=== PATIENT | male | born 1965 | race Caucasian/White ===

== ENCOUNTER 2019-12-24 10:06 | Emergency (ER) | payer OTHER ==
[2019-12-24 10:26] VITALS: BP 129/78
--- NOTE | 2019-12-24 10:52 | ED Physician Documentation ---
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 No LOC. Has lac on top of head. No other injury.) Where head injury occurred: Home Timing - onset: Today Location of injury: Top Quality of pain: Aching Associated symptoms: No: LOC, AMS, Nausea / vomiting, Neck pain Contributing factors: No: Anticoagulated Similar symptoms before: Has not had sx before (has lac on top of head and cannot tell how bad it is himself so here for eval.) Review of Systems Eyes: denies: Decreased vision Skin: reports: Laceration (s) (top of scalp) Musculoskeletal: denies: Neck pain Neurologic: denies: Altered mental status, Headache, LOC PD PAST MEDICAL HISTORY - Past Medical History Neuro: None - Allergies Allergies/Adverse Reactions: Allergies Allergy/AdvReac Type Severity Reaction Status Date / Time amoxicillin Allergy Rash Verified 12/24/19 10:26 Penicillins Allergy Rash Verified 12/24/19 10:25 Sulfa (Sulfonamide Allergy Rash Verified 12/24/19 10:26 Antibiotics) PD ED PE NORMAL - Vitals Vital signs reviewed: Yes - General General: Alert and oriented X 3, No acute distress, Well developed/nourished - HEENT HEENT: PERRL, EOMI, Other (frontal vertex with 1 cm lac not full thickness without FB nor active bleeding. Does not need suturing. ) - Derm Derm: Normal color, Warm and dry - Neuro Neuro: Alert and oriented X 3, bicycle racer 2-12 intact, No motor deficit, No sensory deficit, Normal speech, Other Results - Vitals Vitals: Vital Signs - 24 hr 12/24/19 10:22 Temperature 36.8 C Heart Rate 67 Respiratory 16 Rate Blood Pressure 129/78 O2 Saturation 99 Oxygen O2 Source Room air PD MEDICAL DECISION MAKING - ED course Complexity details: considered differential, d/w patient Departure - Departure Disposition: 01 Home, Self Care Clinical Impression: Scalp laceration Qualifiers: Encounter type: initial encounter Qualified Code(s): S01.01XA - Laceration without foreign body of scalp, initial encounter Condition: Stable Record reviewed to determine appropriate education?: Yes Instructions: ED Laceration All Comments: I did apply some skin glue to the area to seal it over. Leave that in place and clean and dry until it falls off in a few days. Then antibiotic ointment twice daily until fully healed. This should heal up well without any treatment beyond that. Recheck if signs of infection. Discharge Date/Time: 12/24/19 11:17
== END 2019-12-24 11:17 | disposition home or self-care (01) ==
LOC: ED 10:06
DX: S01.01XA Laceration without foreign body of scalp, initial encounter (principal); W27.8XXA Contact with other nonpowered hand tool, initial encounter; Y93.H9 Activity, other involving exterior property and land maintenance, building and construction; Y92.009 Unspecified place in unspecified non-institutional (private) residence as the place of occurrence of the external cause
CPT/HCPCS: 99281; 99282

== ENCOUNTER 2020-02-15 07:07 | Outpatient (CLI) | payer OTHER ==
--- NOTE | 2020-02-15 10:30 | MRI Report ---
PROCEDURE: Lower Leg (Tib-Fib) LT W/O INDICATIONS: PAIN IN LEFT LOWER LEG TECHNIQUE: Noncontrast coronal and sagittal T1 spin echo and STIR; axial T1 spin echo and T2 fast spin echo with fat saturation through the left lower leg. COMPARISON: None. FINDINGS: Image quality: Excellent. Bones: The visualized bone marrow demonstrates normal signal on all sequences. The overlying cortex appears intact. No fractures lines or intra-osseous lesions. Soft tissues: The scanned muscles demonstrate normal overall bulk and internal signal. Subcutaneous tissues appear normal as well. No soft tissue masses are present. IMPRESSION: No MR finding to explain patient's symptoms. No marrow signal abnormality. No muscle or soft tissue signal abnormality Reviewed by: Pato Amador MD on 02/15/2020 9:29 AM [facility] Approved by: Pato Amador MD on 02/15/2020 9:29 AM [facility] Station ID: [id number]
== END 2020-02-15 07:08 | disposition home or self-care (01) ==
LOC: DI 07:07
PROVIDERS: ATTEND Orthopaedic Surgery
DX: M79.662 Pain in left lower leg (principal)

== ENCOUNTER 2020-12-12 14:37 | Outpatient (CLI) | payer OTHER ==
--- NOTE | 2020-12-12 09:09 | XRAY Report ---
PROCEDURE: Wrist 3 View RT INDICATIONS: RIGHT WRIST PAIN TECHNIQUE: 3 views of the wrist were acquired. COMPARISON: December 07, 2020 FINDINGS: BONES: Persistent radial styloid fracture line, less apparent compared to the prior stomach, suggesti ng ongoing healing. No overt callus formation. The remaining osseous structures are maintained. The c arpal bones are normally aligned. SOFT TISSUES: Soft tissue swelling about the fracture site. IMPRESSION: 1.Healing radial styloid fracture as detailed above. Reviewed by: Ga Mercedes MD on 12/12/2020 9:08 AM PDT Approved by: Ga Mercedes MD on 12/12/2020 9:08 AM PDT Station ID: [id number]
== END 2020-12-12 14:38 ==
LOC: DI.N 14:37
PROVIDERS: ATTEND Orthopaedic Surgery
DX: S52.511D Displaced fracture of right radial styloid process, subsequent encounter for closed fracture with routine healing (principal)

== ENCOUNTER 2020-12-26 10:59 | Outpatient (CLI) | payer OTHER ==
--- NOTE | 2020-12-27 08:38 | XRAY Report ---
PROCEDURE: Wrist 3 View RT INDICATIONS: FRACTURE OF LEFT RADIAL STYLOID PROCESS TECHNIQUE: 3 views of the wrist were acquired. COMPARISON: 12/12/2020, 12/07/2020 FINDINGS: Bones: Nondisplaced radial styloid fracture plane is less well seen compared to prior studies, nearly imperceptible at the articular surface and blurred along the lateral margin. Bone alignment remains normal. No significant bridging callus formation. No suspicious bony lesions. Soft tissues: No suspicious soft tissue calcifications. Mild persistent soft tissue swelling. IMPRESSION: Healing nondisplaced radial styloid fracture. Reviewed by: Tanisha Gu MD on 12/27/2020 8:37 AM PDT Approved by: Tanisha Gu MD on 12/27/2020 8:37 AM PDT Station ID: [id number]
== END 2020-12-26 11:00 | disposition home or self-care (01) ==
LOC: DI.N 10:59
PROVIDERS: ATTEND Orthopaedic Surgery
DX: S52.515D Nondisplaced fracture of left radial styloid process, subsequent encounter for closed fracture with routine healing (principal)

== ENCOUNTER 2021-01-27 07:29 | Outpatient (CLI) | payer OTHER ==
--- NOTE | 2021-01-27 09:07 | XRAY Report ---
PROCEDURE: Wrist 3 View RT INDICATIONS: NONDISPLACED FX OF R RADIAL STYLOID TECHNIQUE: 3 views of the wrist were acquired. COMPARISON: Multiple prior images as far back as 12/07/2020. FINDINGS: Bones: There is a healing fracture of the radial styloid which is unchanged compared to the prior jin dy with persistent fracture lucency and no significant bridging callus formation. Alignment is mainta ined. Soft tissues: No suspicious soft tissue calcifications. IMPRESSION: Healing nondisplaced radial styloid fracture with persistent fracture lucency. Reviewed by: Bennie Pardo on 01/27/2021 9:06 AM [facility] Approved by: Bennie Pardo on 01/27/2021 9:06 AM PST Station ID: [id number]
== END 2021-01-27 23:59 | disposition home or self-care (01) ==
LOC: DI.N 07:29
PROVIDERS: ATTEND Orthopaedic Surgery
DX: S52.514D Nondisplaced fracture of right radial styloid process, subsequent encounter for closed fracture with routine healing (principal)

== ENCOUNTER 2021-04-30 10:58 | Outpatient (CLI) | payer OTHER ==
--- NOTE | 2021-04-30 12:02 | SLEEP CARE CONSULTATION ---
Information from patient questionnaire entered by Brandi Stinson MA. I have reviewed and concur with the information entered by Brandi Stinson MA. This document represents the service I personally performed and the decisions made by , Erin Sarabia ARNP. History of Present Illness Service Date and Time: 04/30/2021 1058 Reason for Visit: New patient (ONSET, 03/2011, NO PRIORS,) Chief Complaint: reports: Snoring, Other (wake up with migraines) Date of Onset: 10 PLUS YEARS Usual bedtime: 900 -930 PM Time it takes to fall asleep: 10 MINUTES Snores at night: Yes Observed to quit breathing while asleep: No Sleeps alone due to snoring: No Number of times waking at night: 1 Reasons for waking at night: reports: Bathroom Toss, Turn, or Twitch while sleeping: No Recalls having dreams: No Usually gets out of bed at: 0600 Feels refreshed in the morning: Yes Morning headache: Yes Sleepy or fatigued during the day: No Ever fallen asleep while driving: No Takes day naps: No Dreams during day naps: No Prior sleep studies: No Additional HPI information: I had the pleasure of seeing BAKARI STRANGE today regarding the possibility of him having a sleep disorder. His current complaints are snoring and waking up with migraines. He has a migraine for over 10 years and he saw his PCP who asked about migraines and sleeping. His had noted snoring and talking in his sleep. When he told this to his PCP they referred him here to rule out sleep apnea. The patient tells me that he normally goes to bed around 9-9:30 pm, and it takes him approximately 10 minutes to fall asleep. He has been told that he snores loudly and irregularly at night. He has not been observed to stop breathing in his sleep. His bed partner can still sleep in the same bed but says it is kind of hard to sleep. He can recall waking up on the average of once during the night. Most of the time he wakes up because of bathroom. He has not awakened for his own snoring, choking, and having to gasp for air. There is not a lot of tossing and turning in his sleep. Generally there is no recollection of dreams. He usually wakes up at 0600 and feels refreshed. He usually does have a morning headaches about 3-4 times a year but they can last for weeks to months. During the day he complains of feeling tired if he is not doing something. He has never fallen asleep while driving nor has any accident due to sleepiness. He usually does not take naps during the day. There is somniloquy (sleep talking) and somnambulism (sleep walking) as a kid and not adult. He has never experienced sleep paralysis, cataplexy, or symptoms of restless leg syndrome. He denies having impaired concentration during the day. 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 Patient is and lives in [place]. Have you smoked in the past 12 months: No Cigarettes per day (20/pack): 10 Years of smokin Quit date: 10 YEARS AGO Smoking Pack Years: 10.0 Alcohol use: No Caffeine use: Yes Caffeine amount and frequency: 1 X DAILY Family History Family history of sleep disordered breathing: No Allergies and Home Medications Known drug allergies: Yes (PNC, SULFA) Drug allergies reviewed: Yes Home medication list reviewed: Yes Allergy and home medication list: Allergies amoxicillin Allergy (Verified 12/24/19 10:26) Rash Penicillins Allergy (Verified 12/24/19 10:25) Rash Sulfa (Sulfonamide Antibiotics) Allergy (Verified 12/24/19 10:26) Rash Medications: Sumatriptan Omeprazole bid Amitriptyline 20 mg night (started 3 weeks ago) Review of Systems Cardiovascular: reports: high blood pressure (borderline sometimes) Respiratory: reports: wheeze Gastrointestinal: reports: heartburn Neurological: reports: headaches (hx of migraines) Ear/Nose/Throat: reports: wisdom teeth removed. denies: tonsillectomy Musculoskeletal: reports: joint pain, back pain Immunologic: reports: allergies to food or environment (possible pollen) Physical Exam Vital signs obtained and entered by: DESIREE JOY Blood Pressure: 151/95 (RIGHT, PULSE 58, RESP 16, ) Cuff size: wrist Heart Rate: 63 O2 Saturation: 97 (WITH PAPER MASK) Height: 5 ft 8 in Weight: 206 lb (WITH CLOTHES) Body Mass Index: 31.3 BMI Classification: Obese Neck circumference: 15.75 (inches) Mouth and throat: narrow oropharynx Soft palate: long Hard palate: normal Uvula: normal Uvula visualization: 50% Mallampati Class II Tongue: enlarged in size with teeth courtney on lateral edges Tonsils: small Neck: normal w/o lymphadenopathy or thyromegaly Heart: regular rate and rhythm Lungs: clear bilaterally Impression and Plan 1. Suspected Obstructive Sleep Apnea-Hypopnea Syndrome, as suggested by a history of loud and irregular snoring and morning headaches with a history of migraines. Narrow oropharynx and obesity are common predisposing factors for obstructive sleep apnea-hypopnea syndrome. I recommend proceeding to polysomnography to confirm the diagnosis and to assess severity. If the patient has significant sleep disordered breathing, a manual CPAP titration study will also be performed to find the optimal treatment pressure. I informed the patient of what the sleep studies involve and after some discussion, obtained agreement to proceed. The pathophysiology of obstructive sleep apnea-hypopnea syndrome was discussed with the patient and health risks of cardiovascular and cerebrovascular disease if not treated. AASM brochure for obstructive sleep apnea-hypopnea syndrome given and reviewed. Risks of drowsy driving discussed in detail and patient advised to avoid long distance driving and to washing machine loader and puller at the first sign of drowsiness. Patient agreed to plan. * Schedule polysomnography * Avoid long distance driving or driving when feeling sleepy. * Avoid alcohol, sedative and muscle relaxant around bedtime. * Attempt to lose weight. * Review instructions provided by trained office staff on how to prepare for the sleep study. * Return for follow-up after sleep study completed. Counseling Topics: Weight loss health impact Visit Type: In Office Time Spent with Patient (minutes): 30 Provider Statement: I spent 100% of the Face to Face Visit with the patient with greater than 50% spent counseling the patient and coordination of care.
[2021-04-30 12:03] VITALS: BP 151/95
== END 2021-04-30 10:59 | disposition home or self-care (01) ==
LOC: SC 10:58
PROVIDERS: ATTEND Nurse Practitioner Family
DX: R06.83 Snoring (principal); R51.9 Headache, unspecified; E66.9 Obesity, unspecified; Z68.31 Body mass index [BMI] 31.0-31.9, adult; Z87.891 Personal history of nicotine dependence
CPT/HCPCS: 99203; 99212

== ENCOUNTER 2021-05-14 15:58 | Outpatient (CLI) | payer OTHER | END 2021-05-14 15:59 | disposition home or self-care (01) | LOC: SC 15:58 | PROVIDERS: ATTEND Nurse Practitioner Family | DX: R09.02 Hypoxemia (principal); R06.83 Snoring; R51.9 Headache, unspecified | CPT/HCPCS: 95806 ==

== ENCOUNTER 2021-05-30 15:11 | Outpatient (CLI) | payer OTHER ==
[2021-05-30 15:36] VITALS: BP 141/72
--- NOTE | 2021-05-30 15:36 | SLEEP CARE CONSULTATION ---
Information from patient questionnaire entered by Brandi Stinson MA. I have reviewed and concur with the information entered by Brandi Stinson MA. This document represents the service I personally performed and the decisions made by , Erin Sarabia ARNP. History of Present Illness Service Date and Time: 05/30/2021 1511 Initial [place] Sleepiness Scale score: 6 (2021) Current [place] Sleepiness Scale score: 5 (05/27) Additional HPI information: BAKARI STRANGE returns for follow up and results of the recently performed home sleep study. The patient was informed of the following findings: No significant sleep disordered breathing with an average AHI of 1.0 and laura oxygen saturation of 91%. This is a fair to poor study due to significant loss of air sensor signal during the study. I explained that because his sleep study was sub-optimal I would like him to repeat the study to get more accurate results. Sleep Study - Results Type of Sleep Study: Home sleep study (F/U HOME STUDY, 05/15/21 [facility],) Prior sleep studies: No Polysomnography/Home Sleep Study results: Physician Impression: The quality of the study is [id number] due to loss of airflow signal after about 2 hours into the test. The length of the study is adequate (> 240 minutes). Please also see the tabulated and graphic data. 1. No significant sleep disordered breathing, with an AHI of 1.0/hr and laura SaO2 of 91%. During the study, the patient had 1 apnea (1 obstructive, 0 central, 0 mixed) and 2 hypopneas. The longest episode lasted 141.5 seconds. The patient only slept prone. 2. Hypoxemia (ICD-10 R09.02), normal, with the lowest oxygen saturation of 91 % and 2.3 minutes with SaO2 under 90%. Baseline oxygen saturation was normal (Average oxygen saturation was 93%). Allergies and Home Medications Known drug allergies: Yes (PNC, SULFA DRUG) Drug allergies reviewed: Yes Home medication list reviewed: Yes (no changes) Allergy and home medication list: Allergies amoxicillin Allergy (Verified 12/24/19 10:26) Rash Penicillins Allergy (Verified 12/24/19 10:25) Rash Sulfa (Sulfonamide Antibiotics) Allergy (Verified 12/24/19 10:26) Rash Review of Systems Review of systems same as previous: Yes (no changes) Physical Exam Vital signs obtained and entered by: DESIREE JOY Blood Pressure: 141/72 (LEFT, PULSE 60, RESP 16,) Cuff size: wrist Heart Rate: 68 O2 Saturation: 97 (PAPER) Height: 5 ft 8 in Weight: 205 lb (CLOTHES) Body Mass Index: 31.1 BMI Classification: Obese Impression and Plan 1. Suspected Obstructive Sleep Apnea-Hypopnea Syndrome, as suggested by a history of loud and irregular snoring, fatigue and morning headaches. Patient has a history of migraines. Patient did a home study which was fair to poor due to significant loss of airflow signal during the study. I think we need to have him repeat the study for more accurate results with an in lab PSG. I recommend proceeding to polysomnography to confirm the diagnosis and to assess severity. If the patient has significant sleep disordered breathing, a manual CPAP titration study will also be performed to find the optimal treatment pressure. I informed the patient of what the sleep studies involve and after some discussion, obtained agreement to proceed. The pathophysiology of obstructive sleep apnea-hypopnea syndrome was discussed with the patient and health risks of cardiovascular and cerebrovascular disease if not treated. Risks of drowsy driving discussed in detail and patient advised to avoid long distance driving and to head well puller at the first sign of drowsiness. Patient agreed to plan. * Schedule polysomnography +- manual CPAP titration study and return in 1-2 weeks after the study to discuss results. * Avoid long distance driving or driving when feeling sleepy. * Avoid alcohol, sedative and muscle relaxant around bedtime. * Attempt to lose weight. * Review instructions provided by trained office staff on how to prepare for the sleep study. * Return for follow-up after sleep study completed. Visit Type: In Office Time Spent with Patient (minutes): 11 Provider Statement: I spent 100% of the Face to Face Visit with the patient with greater than 50% spent counseling the patient and coordination of care.
== END 2021-05-30 15:12 | disposition home or self-care (01) ==
LOC: SC 15:11
PROVIDERS: ATTEND Nurse Practitioner Family
DX: R06.83 Snoring (principal); R53.83 Other fatigue; R51.9 Headache, unspecified; E66.9 Obesity, unspecified; Z68.31 Body mass index [BMI] 31.0-31.9, adult
CPT/HCPCS: 99212

== ENCOUNTER 2021-06-25 20:30 | Outpatient (CLI) | payer OTHER | END 2021-06-25 20:31 | disposition home or self-care (01) | LOC: SC 20:30 | PROVIDERS: ATTEND Nurse Practitioner Family | DX: R06.83 Snoring (principal); R51.9 Headache, unspecified; G47.61 Periodic limb movement disorder | CPT/HCPCS: 95810 ==

== ENCOUNTER 2021-07-07 08:50 | Outpatient (CLI) | payer OTHER ==
--- NOTE | 2021-07-07 12:39 | XRAY Report ---
PROCEDURE: Wrist 3 View RT INDICATIONS: WRIST FRACTURE TECHNIQUE: 4 views of the wrist were acquired. COMPARISON: Right wrist radiographs 01/27/2021 FINDINGS: Bones: Progressive healing changes are seen involving the previously seen radial styloid fracture. Th ere appears to be osseous bridging across the majority of the fracture line. Soft tissues: No suspicious soft tissue calcifications. IMPRESSION: Healing or healed radial styloid fracture redemonstrated with unchanged alignment. Reviewed by: Jamie Loera MD on 07/07/2021 12:38 PM PDT Approved by: Jamie Loera MD on 07/07/2021 12:38 PM PDT Station ID: [id number]
== END 2021-07-07 23:59 | disposition home or self-care (01) ==
LOC: DI.WOS 08:50
PROVIDERS: ATTEND Orthopaedic Surgery
DX: S52.514D Nondisplaced fracture of right radial styloid process, subsequent encounter for closed fracture with routine healing (principal)

== ENCOUNTER 2022-09-06 16:15 | Emergency (ER) | payer OTHER ==
[2022-09-06] MEDS ORDERED: PROPARACAINE 0.5% OPHTH DROPS 15 ML EACHEYE STA (16:26)
--- NOTE | 2022-09-06 17:02 | ED Physician Documentation ---
PD HPI OPHTHO - Stated complaint Stated Complaint: RT EYE INJ - Chief complaint Chief Complaint: Heent - History obtained from History obtained from: Patient - History of Present Illness Pain level max: 4 Pain level now: 3 Location: Right Quality / character: Aching Associated symptoms: Redness, Swelling, Tearing, Photophobia, Decreased vision. No: Discharge, Matting, FB sensation, Double vision Contributing factors: Blunt trauma, Wears glasses. No: Recent URI, FB, Chemical exposure, acid, Chemical exposure, base Recently seen: Not recently seen - Additional information Additional information: Patient is a 56-year-old male who presents to the emergency department with a right eye injury. He states that he was weed eating at home when his glasses began to fogged up so he removed to them. He states that something flung and struck him in the right eye. He states it is like looking through a haze in the right eye now. This occurred about 90 minutes prior to arrival. Has dull, aching pain. He does wear glasses but was not wearing them at the time. Review of Systems Constitutional: denies: Fever, Chills GI: denies: Vomiting, Diarrhea Skin: denies: Rash Musculoskeletal: denies: Neck pain, Back pain PD PAST MEDICAL HISTORY - Past Medical History Past Medical History: No Neuro: None - Past Surgical History Past Surgical History: No - Allergies Allergies/Adverse Reactions: Allergies Allergy/AdvReac Type Severity Reaction Status Date / Time amoxicillin Allergy Rash Verified 09/06/22 16:19 Penicillins Allergy Rash Verified 09/06/22 16:19 Sulfa (Sulfonamide Allergy Rash Verified 09/06/22 16:19 Antibiotics) - Social History Does the pt smoke?: No Smoking Status: Never smoker Does the pt drink ETOH?: No - Immunizations Immunizations are current?: No Immunizations: TDAP >10years/unknown PD ED PE NORMAL - Vitals Vital signs reviewed: Yes - General General: Alert and oriented X 3, No acute distress, Well developed/nourished - HEENT HEENT: PERRL, Moist mucous membranes, Other - Cardiac Cardiac: RRR, No murmur - Respiratory Respiratory: Clear bilaterally - Abdomen Abdomen: Normal bowel sounds, Soft, Non tender, Non distended - Derm Derm: Warm and dry - Extremities Extremities: No deformity - Neuro Neuro: Alert and oriented X 3 - Psych Psych: Normal mood, Normal affect - Free text exam Free text exam: Left eye is normal. Right eye has a small subconjunctival hemorrhage on the medial aspect. Fluorescein uptake over the medial aspect of the cornea with several small abrasions. Negative Alfie sign. Intraocular pressure average 20. Bedside ultrasound appears to show a normal posterior chamber of the eye. He does have a enlarged pupil on the right compared to the left and sluggish to react. Results - Vitals Vitals: Vital Signs - 24 hr 09/06/22 09/06/22 16:21 17:31 Temperature 36.6 C Heart Rate 77 61 Respiratory 16 15 Rate Blood Pressure 145/88 H 130/77 O2 Saturation 99 99 Oxygen O2 Source Room air PD Medical Decision Making - ED course Complexity details: reviewed results, re-evaluated patient, considered differential, d/w patient, d/w family, d/w instructional design consultant ED course: 56-year-old male with IOP of 20 in each eye. He has a right subconjunctival hemorrhage. Multiple corneal abrasions. Negative Alfie sign. No evidence of globe rupture. 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 Vision is 20/200 in the right eye. Discussed the case with Dr. Lawrence, ophthalmology, who is not on-call for us was able to take the call. He recommends speaking with [facility] for further evaluation tonight given the high-energy transfer of injury and vision loss severity. Discussed the case with Dr. Eirc, ophthalmology on-call at [facility] who accepts in transfer. Recommends transfer to the emergency department. The patient's is going to drive him directly to the [facility] emergency department. COBRA forms completed This document was made in part using voice recognition software. While efforts are made to proofread this document, sound alike and grammatical errors may occur. 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 Dr. Eric is the industrial manufacturing technician that I spoke to. You have elected to have your drive to the hospital at [facility] rather than be sent by ambulance. Discharge Date/Time: 09/06/22 18:35
[2022-09-06] MEDS ORDERED: HYDROcod/ACETAM 5/325 MG TABLET PO STA (17:27)
[2022-09-06 17:35] VITALS: BP 130/77
[2022-09-06] MEDS ORDERED: ACETAMINOPHEN 325 MG TABLET PO ONE (17:39)
== END 2022-09-06 18:35 | disposition short-term general hospital (02) ==
LOC: ED 16:15
DX: H11.31 Conjunctival hemorrhage, right eye (principal); S05.01XA Injury of conjunctiva and corneal abrasion without foreign body, right eye, initial encounter; H20.9 Unspecified iridocyclitis; H52.52 Paresis of accommodation; H54.7 Unspecified visual loss; W20.8XXA Other cause of strike by thrown, projected or falling object, initial encounter; Y93.H2 Activity, gardening and landscaping; Y92.007 Garden or yard of unspecified non-institutional (private) residence as the place of occurrence of the external cause
CPT/HCPCS: 99284; 99285; A9270; J3490